=== PATIENT | male | born 1990 | race Caucasian/White ===

== ENCOUNTER 2020-07-27 18:32 | Emergency (ER) | payer BC, SELFPAY ==
[2020-07-27] VITALS (20 sets, daily range): BP systolic 128–163; BP diastolic 65–126; PULSE 72–97; RESP 16–28; TEMP 37.1; O2SAT 92–99
--- NOTE | 2020-07-27 18:30 | RT.EKG_ITS ---
APPROVED REPORT Exam: Resting ECG Patient Location: E HR:94 bpm ECG Measurements Heart Rate 94 AXIS KS 169 P 14 QRSd 98 QRS 13 QT 327 T 6 QTc 409 Conclusion Sinus rhythm...normal P axis, V-rate 60- 99
--- NOTE | 2020-07-27 19:00 | DI.RAD_ITS ---
EXAM: XR PORTABLE CHEST AP CLINICAL HISTORY: covid +, sob TECHNIQUE: COMPARISON: No exams were available for comparison FINDINGS: Portable AP chest at 2010 hours. The heart is not enlarged. There are patchy bilateral intrapulmona ry radiodensities. Patient is reportedly COVID positive, findings are consistent with multifocal pne umonitis. No gross pleural effusion identified on this frontal film. IMPRESSION: RADIATION DOSE DELIVERED: Total DLP
[2020-07-27] MEDS: Normal Saline 1,000 ML 1000 ML IV (19:23)
[2020-07-27] MEDS: Ondansetron 4 MG/2 ML VIAL IVP (19:23)
--- NOTE | 2020-07-27 19:35 | ED.GENADUL_ITS ---
Discharge Plan Disposition Patient Disposition: HOME Condition: Good Discharge Details Clinical Impression: Pneumonia due to 2019 novel coronavirus Primary Care Provider: Lilian Alves ED Provider: Leela Sanderson Home Meds and New Rx's Prescriptions: New doxycycline hyclate 100 mg capsule 100 mg PO BID Qty: 20 RF: 0 ondansetron HCl [Zofran] 4 mg tablet 4 mg PO Q8H PRNQty: 7 RF: 0 dexamethasone [Decadron] 6 mg tablet 6 mg PO DAILY Qty: 5 RF: 0 Discharge Instructions Instructions: Pneumonia (ED), COVID-19 (Coronavirus Disease 2019) (ED) Additional Instructions: stay hydrated take antibiotic until completed isolate for 14 days or until symptoms resolve completely zofran for nausea and vomiting decadron for the next 5 days return with oxygen <90% after placing probe for 1 minute, or with any new or worsening complaints Stand Alone Forms: POSITIVE COVID-19/TO BE TESTED Discharge Data Discharge Date/Time-TO BE ENTERED AT DEPARTURE: 07/27/20 21:00 Medical Decision Making <ZARINA Collins - Last Filed: 07/28/20 16:00> Patient ambulated for 2 minutes with pulse oximetry in place, speaking in complete sentences, no distress Oxygen saturation does not decrease below 92%, mild tachycardia, 1 10-1 15 with exertion only No calf tenderness or swelling appreciated Chest x-ray shows bilateral interstitial infiltrates likely consistent with COVID-19, patient has a positive vaccine history Patient was discharged home in stable condition Chest x-ray concerning, he is not hypoxic, he is alert, oriented, ambulatory, and is given a pulse oximeter with instructions on how to use at home He is given very low threshold to return should he have new or worse He is maintaining isolation <ZARINA Yarbrough - Last Filed: 07/28/20 09:29> Patient called this morning concerned that all pharmacies are closed today as it is Easter Wednesday. Will have patient stop by the department to pick at dexamethasone, doxycycline and Zofran. Plan to send him home with enough until tomorrow morning when his pharmacy will be open he can fill the prescription previously prescribed by ZARINA Sanderson. HPI <ZARINA Collins Last Filed: 07/28/20 16:00> This 30-year-old male presents with report of shortness of breath, nausea, lightheadedness with recent diagnosis of COVID-19. Patient denies any fever or chills. He states she was diagnosed on Wednesday of last week but became symptomatic on Wednesday. He denies any calf pain or swelling. He denies any chest discomfort. General Date/Time Provider Initiated Documentation: 07/27/20 18:33 . Related Data Home Medications Medication Instructions Recorded Confirmed dexamethasone [Decadron] 6 mg PO DAILY #5 tab 07/27/20 doxycycline hyclate 100 mg PO BID #20 cap 07/27/20 ondansetron HCl [Zofran] 4 mg PO Q8H PRN #7 tab 07/27/20 Previous Rx's Medication Instructions Recorded dexamethasone [Decadron] 6 mg PO DAILY #5 tab 07/27/20 doxycycline hyclate 100 mg PO BID #20 cap 07/27/20 ondansetron HCl [Zofran] 4 mg PO Q8H PRN #7 tab 07/27/20 Allergies Allergy/AdvReac Type Severity Reaction Status Date / Time No Known Allergies Allergy Unverified 07/27/20 18:42 General Stated Complaint: SOB JENNIE: 2 <ZARINA Yarbrough - Last Filed: 07/28/20 09:29> This 30-year-old male presents with report of shortness of breath, nausea, lightheadedness with recent diagnosis of COVID-19. Patient denies any fever or chills. He states she was diagnosed on Wednesday of last week but became symptomatic on Wednesday. He denies any calf pain or swelling. He denies any chest discomfort. Review of Systems <ZARINA Collins - Last Filed: 07/28/20 16:00> Narrative: Review of systems obtained x7 aside from where indicated in [facility] PFSH <ZARINA Collins - Last Filed: 07/28/20 16:00> Social History Smoking/Tobacco Use Status: Never Smoking risk assessment performed?: Yes Alcohol Intake: current Alcohol Intake frequency: holidays/special occasions only Substance use type: marijuana Do you feel safe at home: Yes Do you feel safe in your relationship?: Yes Exam <ZARINA Collins - Last Filed: 07/28/20 16:00> Const General: cooperative, comfortable and no acute distress Chest Chest: normal inspection of the chest Resp Effort & Inspection: normal respiratory effort Cardio Rate: regular rate Rhythm: regular rhythm GI Other: No abdominal tenderness Skin General skin exam: no rashes or lesions noted Neuro General: patient alert and patient oriented x3 Course <ZARINA Collins - Last Filed: 07/28/20 16:00> Vital Signs Vital signs: Vital Signs Temperature 37.1 C 07/27/20 18:37 Pulse 97 H 07/27/20 18:37 Respiratory Rate 16 07/27/20 18:37 Blood Pressure 128/78 07/27/20 18:37 Pulse Oximetry 95 07/27/20 18:37 Temperature 37.1 C 07/27/20 18:37 Temperature Source Tympanic 07/27/20 18:37 Pulse 93 H 07/27/20 19:31 Pulse 91 H 07/27/20 19:31 Respiratory Rate 28 H 07/27/20 19:31 Respiratory Effort 07/27/20 18:37 Blood Pressure 132/70 07/27/20 19:31 Blood Pressure Mean 83 07/27/20 19:31 Blood Pressure Position Sitting 07/27/20 18:37 Pulse Oximetry 94 07/27/20 19:31 Oxygen Delivery Method Room Air 07/27/20 18:37 Oxygen Flow Rate 0 07/27/20 18:37 Pain Level 7 07/27/20 18:37 Comment 07/27/20 18:37
[2020-07-27] MEDS: Acetaminophen 500 MG TAB (19:54)
--- NOTE | 2020-07-27 20:30 | DI.VRAD_ITS ---
PROCEDURE INFORMATION: Exam: XR Chest Exam date and time: 07/27/2020 8:15 PM Age: 30 years old Clinical indication: Shortness of breath; Patient HX: Covid +, SOB TECHNIQUE: Imaging protocol: XR of the chest Views: 1 view. Other technique: Motion degraded imaged. COMPARISON: No relevant prior studies available. FINDINGS: Lungs: Scattered, patchy infiltrates in each lung. Pleural spaces: Unremarkable. No pleural effusion. No pneumothorax. Heart/Mediastinum: Unremarkable. No cardiomegaly. Bones/joints: Unremarkable. IMPRESSION: 1. Limited study due to motion degradation. 2. Bilateral lung infiltrates. Dictated and Authenticated by: Oh Mena MD. Ordering:ERNA Swenson MD
[2020-07-27] MEDS: Doxycycline Hyclate 100 MG CAP PO (21:01)
[2020-07-27] MEDS: Dexamethasone 4 MG TAB 6 MG PO (21:01)
== END 2020-07-27 21:00 | disposition home or self-care (01) ==
PROVIDERS: Emergency Provider Physician Assistant; PCP Nurse Practitioner Family
DX: U07.1 COVID-19 (principal); J12.82 Pneumonia due to coronavirus disease 2019; R11.0 Nausea
CPT/HCPCS: 80053; 83690; 93005; 96361; 96374; 99284; 71045; 85025; 93010; J2405; J8540

== ENCOUNTER 2020-07-28 09:52 | Emergency (ER) | payer BC, SELFPAY ==
--- NOTE | 2020-07-28 09:53 | W.ED.FU ---
Patient was seen in the emergency department yesterday. You will see a note from myself as an addendum on previous note. However, we are unable to obtain full appropriate medications for the patient under the old V member, hence patient was registered once again. At this time, we are unable to find an open pharmacy to have patient fill his prescriptions as it is Easter Wednesday. Instead, plan to dispense medications required from patient's visit yesterday. Patient was given 6 mg p.o. dexamethasone, ODT ondansetron, 3 tabs of 100 mg doxycycline. Patient is suspected Covid positive and does not have any change in symptoms, patient was seen in his car to help prevent spread of illness.
[2020-07-28] MEDS: Ondansetron O.D.T. 4 MG TABEF, 3 TABS/BTL PO (10:06)
[2020-07-28] MEDS: Doxycycline Hyclate 100 MG CAP 300 MG PO (10:06)
[2020-07-28] MEDS: Dexamethasone 4 MG TAB 6 MG PO (10:06)
--- NOTE | 2020-07-28 10:06 | NUR.NOTE ---
Pt called as was unable to fill prescriptions he was given yesterday. All pharmacies closed d/t holiday. Attempted to dispense meds from previous account, was unable. Was advised by pharmacy he needed a new account number. Pt did not require a MSE. Meds were dispensed to pt in parking lot. Pt A&Ox3, speaking in full sentences, in NAD.
== END 2020-07-28 10:05 | disposition home or self-care (01) ==
PROVIDERS: Emergency Provider Physician Assistant; PCP Nurse Practitioner Family
DX: U07.1 COVID-19 (principal); J12.82 Pneumonia due to coronavirus disease 2019
CPT/HCPCS: J8540